=== PATIENT | female | born 1955 | race Hispanic/Latino ===

== ENCOUNTER 2017-10-29 14:06 | Emergency (ER) | payer SELFPAY ==
[~2017-10-29] VITALS: Ht 149.9 cm; Wt 99.6 kg
[2017-10-29 15:06] LABS: HEMATOCRIT 31.5 % (36.0-46.0); HEMOGLOBIN 9.3 G/DL (11.9-15.5); MCH 20.2 PG (29.0-34.0); MCHC 29.5 G/DL (30.0-36.0); MCV 68.5 FL (83-99); PLATELET COUNT 446 K/uL (156-360); RBC DIS.WIDTH-CV 20.4 % (11.8-14.6); RBC DIS.WIDTH-SD 49.3 % (39-53); WHITE BLOOD COUNT 7.9 K/uL (4.1-10.2)
[2017-10-29 15:09] LABS: APPEARANCE CLEAR ((CLEAR)); BILIRUBIN NEGATIVE; BLOOD NEGATIVE; COLOR COLORLESS ((YELLOW)); GLUCOSE (STRIP) NEGATIVE; KETONES NEGATIVE; LEUKOCYTES NEGATIVE; NITRITE NEGATIVE; PROTEIN (STRIP) NEGATIVE; SPECIFIC GRAVITY 1.011 (1.000-1.030); UCUL ADDED? NO; UROBILINOGEN 0.2 MG/DL (0.2-1.0)
[2017-10-29 15:19] LABS: ALBUMIN 4.1 G/DL (3.2-4.8); CHLORIDE 104 MEQ/L (99-109); POTASSIUM 4.7 MEQ/L (3.7-5.4); SODIUM 141 MEQ/L (136-147); TOTAL BILIRUBIN 0.3 MG/DL (0.0-1.0)
[2017-10-29 15:24] LABS: ALKALINE PHOSPHATASE 86 IU/L (3-129); ALT (GPT) 6 IU/L (3-49); AST (GOT) 19 IU/L (2-34); CREATININE 0.6 MG/DL (0.6-1.3); GFR ESTIMATE (CALCULATED) > 59 mL/min/; GLUCOSE 83 mg/dL (70-99); TOTAL PROTEIN 7.2 G/DL (6.4-8.3); UREA NITROGEN (BUN) 20 mg/dL (9-23)
[2017-10-29 15:29] LABS: TROP-I INTERPRETATION NEGATIVE; TROPONIN-I < 0.01 ng/mL (0.0-0.30)
[2017-10-29 17:18] LABS: LIPASE 27 U/L (1.0-51.0)
[2017-10-29 18:24] LABS: TROP-I INTERPRETATION NEGATIVE; TROPONIN-I < 0.01 ng/mL (0.0-0.30)
[2017-10-29] MEDS ORDERED: ZANTAC150 MG PO (18:32)
[2017-10-29] MEDS ORDERED: BENTYL20 MG PO (18:32)
[2017-10-29] MEDS ORDERED: LISINOPRIL20 MG PO (18:57)
[2017-10-29] MEDS ORDERED: ZOFRAN ODT4 MG PO (18:57)
[2017-10-29 19:09] VITALS: BP 146/69
== END 2017-10-29 19:10 | disposition home or self-care (01) ==
LOC: EME 14:06
PROVIDERS: Nurse Practitioner Family
DX: R10.13 Epigastric pain (principal); R11.2 Nausea with vomiting, unspecified; R19.7 Diarrhea, unspecified; I10 Essential (primary) hypertension
CPT/HCPCS: 71046; 76705; 80053; 81003; 83690; 84484; 85027; 93005; 99281; 99285; J0500; J1885